=== PATIENT | male | born 1970 | race Caucasian/White ===

== ENCOUNTER 2025-05-01 12:36 | Emergency (ER) | payer BC, OTHER ==
[~2025-05-01] VITALS: Ht 175.3 cm; Wt 113.0 kg
--- NOTE | 2025-05-01 13:27 | DVH ---
EXAM: CT HEAD WITHOUT CONTRAST INDICATION: Dizzy. TECHNIQUE: CT of the head without intravenous contrast. Coronal and sagittal reformatted images are s ubmitted. Radiation Dose : 1. Head: CT Dose: CTDI volume is 59.43 mGy. Dose-length product is 1.71 mGy*cm The dose indicators for CT are the volume Computed Tomography (CT) Dose Index (CTDIvol) and the Dose Length Product (DLP), and are measured in units of mGy and mGy-cm, respectively. These indicators are not patient dose, but values generated from the CT scanner acquisition factors. The report includes radiation exposure data for exposures received during this examination. All CT scans at this medical facility are performed using dose modulation techniques as appropriate to a performed exam including the following: Automated exposure control was utilized; adjustment of the MA and/or KV according to patient size; and use of iterative reconstruction technique. COMPARISON: None FINDINGS: There is no evidence of acute intracranial hemorrhage, extra-axial collection, mass effect, midline s hift, herniation or hydrocephalus. The ventricles, sulci and cisterns are age appropriate. The apodaca-white differentiation is intact. Postsurgical changes in the sinuses. Mastoid air cells are clear. Empty sella. There is soft tissue thickening in the periphery of the sella. No depressed calvarial fracture. The surrounding soft tissues are unremarkable. IMPRESSION: 1. No acute intracranial abnormality. 2. Soft tissue thickening in the region of the sella turcica. This could be postsurgical in nature. Please correlate with surgical clinical history.
--- NOTE | 2025-05-01 13:33 | ED.PDOC ---
History of Present Illness HPI Comments 54 y/o M, with no prior medical history presents to the ED for CC of dizziness. Patient states, he has been experiencing symptoms of dizziness with associated lightheadedness x1week. Patient relays, new onset symptoms of right eye swelling; no noticeable swelling is noted at this time. Patient denies nausea, vomiting, blurred vision, weakness, or fatigue. No other symptoms or modifying factors are present at this time. Chief Complaint: Dizziness Time Seen by MD: 13:30 Reviewed Notes: Nurses Notes, Medications, Allergies Allergies: Coded Allergies: Penicillins (Verified Allergy, Unknown, 05/01/25) Information Source: Patient Mode of Arrival: Ambulatory Severity: Moderate Timing: Weeks Duration: Since onset Prehospital treatment: None Past Medical History PAST MEDICAL HISTORY: Denies Surgical History: Denies all surgeries Family History Family History: Unknown Social History Smoker: Non-Smoker Alcohol: Denies ETOH Use Drugs: Denies Drug Use Lives In: Home Constitutional: denies: chills, diaphoresis, fatigue, fever, malaise, sweats, weakness, others EENTM: reports: others (RIGHT EYE SWELLING); denies: blurred vision, double vision, ear bleeding, ear discharge, ear drainage, ear pain, ear ringing, eye pain, eye redness, hearing loss, mouth pain, mouth swelling, nasal discharge, nose bleeding, nose congestion, nose pain, photophobia, tearing, throat pain, throat swelling, voice changes Respiratory: denies: cough, hemoptysis, orthopnea, SOB at rest, shortness of breath, SOB with excertion, stridor, wheezing, others Cardiovascular: denies: chest pain, dizzy spells, diaphoresis, Dyspnea on exertion, edema, irregular heart beat, left arm pain, lightheadedness, palpitations, PND, syncope, others Gastrointestinal: denies: abdomen distended, abdominal pain, blood streaked bowels, constipated, diarrhea, dysphagia, difficulty swallowing, hematemesis, melena, nausea, poor appetite, poor fluid intake, rectal bleeding, rectal pain, vomiting, others Genitourinary: denies: burning, dysuria, flank pain, frequency, hematuria, i ncontinence, penile discharge, penile sore, pain, testicle pain, testicle swelling, urgency, others Neurological: reports: dizziness; denies: fainting, headache, left sided numbness, left sided weakness, numbness, paresthesia, pre-existing deficit, right sided numbness, right sided weakness, seizure, speech problems, tingling, tremors, weakness, others Musculoskeletal: denies: back pain, gout, joint pain, joint swelling, muscle pain, muscle stiffness, neck pain, others Integumetry: denies: bruises, change in color, change in hair/nails, dryness, l aceration, lesions, lumps, rash, wounds, others Allergic/Immunocompromised: denies: Difficulty Healing, Frequent Infections, Hives, Itching, others Hematologic/Lymphatic: denies: anemia, blood clots, easy bleeding, easy bruising, swollen glands, others Endocrine: denies: excessive hunger, excessive sweating, excessive thirst, excessive urination, flushing, intolerance to cold, intolerance to heat, unexplained weight gain, unexplained weight loss, others Psychiatric: denies: anxiety, bipolar disorder, depression, hopeless, panic disorder, schizophrenia, sleepless, suicidal, others All Other Systems: Reviewed and Negative Physical Exam General Appearance: Moderate Distress HEENT: Normal ENT Inspection, Pharynx Normal, TMs Normal Neck: Full Range of Motion, Non-Tender, Normal, Normal Inspection Respiratory: Chest Non-Tender, Lungs Clear, No Accessory Muscle Use, No Respiratory Distress, Normal Breath Sounds Cardiovascular: No Edema, No JVD, No Murmur, No Gallop, Normal Peripheral Pulses, Regular Rate/Rhythm Breast Exam: Deferred Gastrointestinal: No Organomegaly, Non Tender, No Pulsatile Mass, Normal Bowel Sounds, Soft Genitalia: Deferred Pelvic: Deferred Rectal: Deferred Extremities: No calf tenderness, Normal capillary refill, Normal inspection, Normal range of motion, Non-tender, No pedal edema Musculoskeletal : Apperance: Normal Neurologic: Alert, car salter II-XII nml as Tested, No Motor Deficits, Normal Affect, Normal Mood, No Sensory Deficits Cerebellar Function: Normal Reflexes: Normal Skin: Dry, Normal Color, Warm Peripheral Pulses: 3+ Radial (R), 3+ Radial (L) Lymphatic: No Adenopathy Was a procedure done? Was a procedure done?: No Differential Dx Considerations may include: MIGRAINE HEADACHE, SINUITIS, GENERALIZED HEADACHE X-Ray, Labs, Meds, VS Vital Signs Date Time Temp Pulse Resp B/P (MAP) Pulse Ox O2 Delivery O2 Flow Rate FiO2 05/01/25 12:44 81 05/01/25 12:37 97.8 94 16 154/87 97 97.8 Lab Test 05/01/25 13:55 Range/Units White Blood Count 8.3 4.4-10.8 10^3/uL Red Blood Count 5.35 4.5-5.90 10^6/uL Hemoglobin 15.9 13.5-17.5 g/dL Hematocrit 45.8 41.0-53.0 % Mean Corpuscular Volume 85.7 80.0-100.0 fL Mean Corpuscular Hemoglobin 29.7 28.0-32.0 pg Mean Corpuscular Hemoglobin Concent 34.7 32.0-36.0 g/dL Red Cell Distribution Width 13.6 11.8-14.3 % Platelet Count 244 140-450 10^3/uL Mean Platelet Volume 7.8 6.9-10.8 fL Neutrophils (%) (Auto) 50.8 37.0-80.0 % Lymphocytes (%) (Auto) 36.0 10.0-50.0 % Monocytes (%) (Auto) 10.5 0.0-12.0 % Eosinophils (%) (Auto) 1.8 0.0-7.0 % Basophils (%) (Auto) 0.9 0.0-2.0 % Neutrophils # (Auto) 4.2 1.6-8.6 10 ^3/uL Lymphocytes # (Auto) 3.0 0.4-5.4 10 ^3/uL Monocytes # (Auto) 0.9 0-1.3 10 ^3/uL Eosinophils # (Auto) 0.1 0-0.8 10 ^3/uL Basophils # (Auto) 0.1 0-0.2 10 ^3/uL Nucleated Red Blood Cells 0.1 % Sodium Level 142 136-145 mmol/L Potassium Level 3.7 3.5-5.1 mmol/L Chloride Level 104 98-107 mmol/L Carbon Dioxide Level 30 20-31 mmol/L Anion Gap 8 5-15 Blood Urea Nitrogen 13 9-23 mg/dL Creatinine 0.91 0.700-1.30 mg/dL Glomerular Filtration Rate Calc 99 >90 mL/min BUN/Creatinine Ratio 14.3 10.0-20.0 Serum Glucose 105 74-106 mg/dL Calcium Level 8.9 8.7-10.4 mg/dL [facility] [id number] [place] [id number] Ph: [phone] DIAGNOSTIC IMAGING Diagnostic Imaging Report : [id number] Signed PATIENT: HILDA WOOTEN ACCT: [id number] UNIT: [id number] : 1970 LOC: ER ROOM / BED: / AGE / SEX: 54 / M ADM STATUS: REG ER SERVICE 1254 ORDERING PHYSICIAN: MAKEDA FUENTES MD PROCEDURE(s): HWOCT - HEAD WITHOUT CONTRAST REASON: dizzy ORDER NUMBER(s): [id number], ACCESSION NUMBER(s): [id number] EXAM: CT HEAD WITHOUT CONTRAST INDICATION: Dizzy. TECHNIQUE: CT of the head without intravenous contrast. Coronal and sagittal reformatted images are submitted. Radiation Dose : 1. Head: CT Dose: CTDI volume is 59.43 mGy. Dose-length product is 1.71 mGy*cm The dose indicators for CT are the volume Computed Tomography (CT) Dose Index (CTDIvol) and the Dose Length Product (DLP), and are measured in units of mGy and mGy-cm, respectively. These indicators are not patient dose, but values generated from the CT scanner acquisition factors. The report includes radiation exposure data for exposures received during this examination. All CT scans at this medical facility are performed using dose modulation techniques as appropriate to a performed exam including the following: Automated exposure control was utilized; adjustment of the MA and/or KV according to patient size; and use of iterative reconstruction technique. COMPARISON: None FINDINGS: There is no evidence of acute intracranial hemorrhage, extra-axial collection, mass effect, midline shift, herniation or hydrocephalus. The ventricles, sulci and cisterns are age appropriate. The apodaca-white differentiation is intact. Postsurgical changes in the sinuses. Mastoid air cells are clear. Empty sella. There is soft tissue thickening in the periphery of the sella. No depressed calvarial fracture. The surrounding soft tissues are unremarkable. IMPRESSION: 1. No acute intracranial abnormality. 2. Soft tissue thickening in the region of the sella turcica. This could be postsurgical in nature. Please correlate with surgical clinical history. ATED BY: ARYNE RINCON MD DICTATED DATE/TIME: 05/01/251324 SIGNED BY: RAYNE RINCON MD SIGNED DATE/TIME: 05/01/251324 CC: Patient alert. Complaining of dizziness pain CT of the head reviewed does not show any acute process. Vitals stable. Answering questions. Ambulating. Good muscle strength. Able to walk in a straight line. Was given prescription of meclizine. Explained to the patient. Was told to follow up with his primary care physician. Was told to come back if there is any problem. Time of 1ST Reevaluation: 14:00 Reevaluation 1ST: Improved Patient Education/Counseling: Diagnosis, Treatment Family Education/Counseling: No Family Present SEPSIS Sepsis Screen Date sepsis recognized/suspect: May 01, 2025 Time Sepsis recognized/suspect: 1237 Recent Procedure: No On Antibiotic Therapy: No Respiratory Rate >20: No Heart Rate >90: Yes Temp<36 C (96.8 F) or >38.3 C: No SBP <90 or MAP <65 mmHG: No New Acute Mental Status Change: No Is the patient on CPAP, BIPAP,: No Physician Orders Head Without Contrast (05/01/25 12:54) Electrocardigram (05/01/25 13:18) Vital Signs Date Time Temp Pulse Resp B/P (MAP) Pulse Ox O2 Delivery O2 Flow Rate FiO2 05/01/25 12:44 81 05/01/25 12:37 97.8 94 16 154/87 97 97.8 Laboratory Tests Test 05/01/25 13:55 White Blood Count 8.3 10^3/uL (4.4-10.8) Departure 1 Departure Time of Disposition: 15:58 Impression: Primary Impression: Autonomic disorder Disposition: 01 HOME / SELF CARE / HOMELESS Condition: Good e-Prescriptions Meclizine HCl (Meclizine 25) 25 Mg Tab 25 MG PO DAILY for 5 Days, #5 TAB Prov: MAKEDA FUENTES MD 05/01/25 Discharged With: Self Critical Care Note Critical Care Time?: No Stability Stability form required: No Heart Score Heart Score: Heart Score Response (Comments) Value History N/A 0 EKG N/A 0 Age N/A 0 Risk Factors N/A 0 Troponin N/A 0 Total 0 I personally scribed for MAKEDA FUENTES MD ([email or web address]) on 05/01/25 at 13:33. Electronically submitted by Blessing Mazariegos ([email or web address]). I personally scribed for MAEKDA FUENTES MD ([email or web address]) on 05/01/25 at 13:34. Electronically submitted by Blessing Mazariegos ([email or web address]). MAKEDA FUENTES MD May 01, 2025 13:33
[2025-05-01 14:08] LABS: Hematocrit 45.8 % (41.0-53.0); Hemoglobin 15.9 g/dL (13.5-17.5); Mean Corpuscular Hemoglobin 29.7 pg (28.0-32.0); Mean Corpuscular Volume 85.7 fL (80.0-100.0); Nucleated Red Blood Cells % 0.1 %
[2025-05-01 14:17] LABS: Chloride 104 mmol/L (98-107); Potassium 3.7 mmol/L (3.5-5.1); Sodium 142 mmol/L (136-145)
[2025-05-01 14:18] LABS: Anion Gap 8 (5-15); Calcium 8.9 mg/dL (8.7-10.4); Carbon Dioxide 30 mmol/L (20-31)
[2025-05-01 14:23] LABS: BUN/Creatinine Ratio 14.3 (10.0-20.0); Blood Urea Nitrogen 13 mg/dL (9-23); Glucose 105 mg/dL (74-106)
[2025-05-01] MEDS ORDERED: MECL1TAB42 PO (15:59)
[2025-05-01 16:20] VITALS: BP 134/75; TEMP 96.8
[2025-05-01 16:33] VITALS: PULSE 71; RESP 18; O2SAT 96
[2025-05-01] MEDS: SODIUM CHLORIDE 0.9% 1,000 ML IV ONE (16:37)
--- NOTE | 2025-05-03 06:36 | ECG ---
[facility] Test Date: 2025-05-01 Test Time: 12:44:37 Pat Name: HILDA WOOTEN Department: ED Room: Gender: M Hris Coordinator: MARTHA : 1970 Requested By: MAKEDA FUENTES Order Number: [id number] Reading MD: Measurements Intervals [place] Rate: 81 P: 48 CO: 175 QRS: -84 QRSD: 101 T: 74 QT: 378 QTc: 439 Interpretive Statements Sinus rhythm LAD, consider left anterior fascicular block Abnormal R-wave progression, late transition Please click the below link to view image of tracing.
== END 2025-05-01 16:54 | disposition home or self-care (01) ==
LOC: ER 12:36
DX: G90.9 Disorder of the autonomic nervous system, unspecified (principal); Z88.0 Allergy status to penicillin; Z79.899 Other long term (current) drug therapy
CPT/HCPCS: 36415; 70450; 80048; 85025; 93005